=== PATIENT | female | born 1980 | race Caucasian/White ===

== ENCOUNTER → 2024-12-14 09:43 | Outpatient (BNVA) | payer MEDICARE, MEDICAID, SELFPAY | PROVIDERS: PCP Nurse Practitioner Family; Visit Provider Podiatrist | DX: M79.671 Pain in right foot (principal); D17.23 Benign lipomatous neoplasm of skin and subcutaneous tissue of right leg; G57.30 Lesion of lateral popliteal nerve, unspecified lower limb; G57.80 Other specified mononeuropathies of unspecified lower limb; R20.2 Paresthesia of skin; M79.89 Other specified soft tissue disorders | CPT/HCPCS: 99205 ==

== ENCOUNTER 2024-12-14 13:50 | Outpatient (CLI) | payer MEDICARE, MEDICAID, SELFPAY ==
--- NOTE | 2024-12-14 10:45 | DI.RAD_ITS ---
Exam(s) XR FOOT LT COMPLETE EXAM: XR FOOT LT COMPLETE CLINICAL HISTORY: pain both feet, M79.671, M79.672. TECHNIQUE: 2D digital imaging was performed. Three views. COMPARISON: CR XR FOOT RT COMPLETE from 12/14/2024 FINDINGS: BONES: No acute fracture is present. No bony destructive lesion is seen. Two screws are noted in the 1st metatarsal head. Small plantar calcaneal spur. Plantar arch is maintained. JOINTS: No dislocation present. No significant degenerative changes. SOFT TISSUE: Normal. IMPRESSION: Postsurgical changes at the 1st metatarsal head. DATA REPOSITORY: RADIATION DOSE DELIVERED:
--- NOTE | 2024-12-14 10:45 | DI.RAD_ITS ---
Exam(s) XR FOOT RT COMPLETE EXAM: XR FOOT RT COMPLETE CLINICAL HISTORY: bilateral foot pain, M79.671, M79.672. TECHNIQUE: 2D digital imaging was performed. Three views. COMPARISON: No exams were available for comparison FINDINGS: BONES: No acute fracture is present. No bony destructive lesion is seen. Enthesophyte at the Achilles insertion. JOINTS: No dislocation present. Minimal 1st metatarsal varus. No significant valgus. No significant degenerative changes. Plantar arch is maintained. SOFT TISSUE: Normal. IMPRESSION: Small enthesophyte at the Achilles insertion. DATA REPOSITORY: RADIATION DOSE DELIVERED:
== END 2024-12-14 14:10 ==
PROVIDERS: PCP Nurse Practitioner Family; Visit Provider Podiatrist
DX: M79.671 Pain in right foot (principal); M79.672 Pain in left foot
CPT/HCPCS: 99205; 73630

== ENCOUNTER 2025-01-05 03:52 | Outpatient (CLI) | payer MEDICARE, MEDICAID, SELFPAY ==
--- NOTE | 2025-01-05 06:00 | DI.MRI_ITS ---
Exam(s) MR LOWER EXTREMITY RT WO/W EXAM: MR LOWER EXTREMITY RT WO/W CLINICAL HISTORY: ST mass lateral leg above the ankle/muscle,? hernia,RT LEG PAIN. TECHNIQUE: Multiplanar multisequence MRI was performed. CONTRAST MATERIAL: IV Contrast: 19 mL of Dotarem contrast administered. COMPARISON: None. FINDINGS: BONES: No evidence of fracture. No evidence of bone lesion. JOINTS: No joint space narrowing identified. No joint effusion identified. MUSCULOTENDINOUS STRUCTURES: Visualized portion of the planar fascia is unremarkable. The visualized intrinsic muscles and tendons of the foot are unremarkable. SOFT TISSUES: Unremarkable. A marker was placed over the area of clinical concern at the lateral aspect of the lower leg. Beneath this area, there is a slight bulging of the contour of the peroneus muscle. There is a mild fascial disruption at this level. There appears to be in the exiting vessel at this level. The peroneal tendons appear intact. There is no abnormal high signal within the muscle or stone soft tissues. There is no evidence of a discrete mass. The findings are consistent with a small muscle hernia. IMPRESSION: Findings are consistent with a small peroneal muscular hernia corresponding to the palpable abnormality. There is no evidence of mass. DATA REPOSITORY:
[2025-01-05] MEDS: Normal Saline Flush 10 ML SYR IVP (09:58)
[2025-01-05] MEDS: Gadoterate meglumine 20 ML VIAL 19 ML IVP (09:58)
== END 2025-01-05 04:12 ==
PROVIDERS: PCP Nurse Practitioner Family; Visit Provider Podiatrist
DX: M79.604 Pain in right leg (principal); M62.89 Other specified disorders of muscle
CPT/HCPCS: 73720

== ENCOUNTER → 2025-01-10 09:56 | Outpatient (BNVA) | payer MEDICARE, MEDICAID, SELFPAY | PROVIDERS: PCP Nurse Practitioner Family; Referring Provider Nurse Practitioner Family; Visit Provider Podiatrist | DX: S93.332A Other subluxation of left foot, initial encounter (principal); M76.61 Achilles tendinitis, right leg; G57.30 Lesion of lateral popliteal nerve, unspecified lower limb; M92.61 Juvenile osteochondrosis of tarsus, right ankle; M79.89 Other specified soft tissue disorders; M79.604 Pain in right leg; R20.2 Paresthesia of skin; G57.80 Other specified mononeuropathies of unspecified lower limb; M79.671 Pain in right foot; X58.XXXA Exposure to other specified factors, initial encounter | CPT/HCPCS: 99214 ==

== ENCOUNTER → 2025-02-28 09:34 | Outpatient (BNVA) | payer MEDICARE, MEDICAID, SELFPAY | PROVIDERS: PCP Nurse Practitioner Family; Referring Provider Nurse Practitioner Family; Visit Provider Podiatrist | DX: M79.671 Pain in right foot (principal); M79.604 Pain in right leg; S93.332A Other subluxation of left foot, initial encounter; X58.XXXA Exposure to other specified factors, initial encounter; M76.61 Achilles tendinitis, right leg; R20.2 Paresthesia of skin; M77.31 Calcaneal spur, right foot | CPT/HCPCS: 99213 ==